=== PATIENT | female | born 1985 | race Caucasian/White ===

== ENCOUNTER 2022-10-11 21:01 | Emergency (ER) | payer SELFPAY ==
[2022-10-11 21:07] VITALS: BP 122/84; PULSE 87; RESP 16; TEMP 37.1; O2SAT 99; BMI 25.1
--- NOTE | 2022-10-11 22:01 | CRLHL7_ITS ---
For Patients: As a result of the Cures Act, medical imaging exams and procedure reports are released immediately into your electronic medical record. You may view this report before your referring provider. If you have questions, please contact your health care provider. INDICATION: Jaw pain for 3 weeks TECHNIQUE: CT maxillofacial without contrast. COMPARISON: None FINDINGS: Facial bones: No fractures or bone lesions. Specifically the nasal bones, temporomandibular joints, maxilla and mandible appear intact. Orbits and globes: Unremarkable. Sinuses: No acute or significant findings. Soft tissues: Unremarkable. There is a small amount of fluid in the left mastoid air cells. No significant dental disease. No bony erosions. IMPRESSION: No acute abnormality identified. Specifically, no mandibular dislocation, fracture, or significant dental disease. Please note that all CT scans at this facility use dose modulation, iterative reconstruction, and/or weight-based dosing when appropriate to reduce radiation dose to as low as reasonably achievable. Dictated by Martha Dye MD @ 10/11/2022 10:46:42 PM (Electronically Signed)
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
[2022-10-11] MEDS: KETOROLAC 10 MG TABLET PO (22:04)
[2022-10-11 22:20] VITALS: BP 114/72; PULSE 82; RESP 18; O2SAT 99
--- NOTE | 2022-10-11 23:03 | PC.NURSE ---
patient given copy of CT report per request, no further questions with DC instructions
== END 2022-10-11 23:08 | disposition home or self-care (01) ==
LOC: ED 23:07
PROVIDERS: Emergency Provider Family Medicine
DX: S03.40XA Sprain of jaw, unspecified side, initial encounter (principal)
CPT/HCPCS: 70486; 99283; 99284; A9270